=== PATIENT | female | born 1980 | race Two or more races ===

== ENCOUNTER 2024-07-03 08:29 | Emergency (ER) | payer BC ==
[2024-07-03 09:12] LABS: BASOPHILS ABSOLUTE AUTO 0.09 K/uL (0.00-0.20); BASOPHILS PERCENT AUTO 0.7 % (0.0-1.0); EOSINOPHILS ABSOLUTE AUTO 0.64 K/uL (0.00-0.45); HEMATOCRIT 39.5 % (37.0-47.0); HEMOGLOBIN 13.4 g/dL (12.0-16.0); IMMATURE GRAN ABSOLUTE AUTO 0.04 K/uL (0.00-0.05); IMMATURE GRAN PERCENT AUTO 0.3 % (0.0-0.4); LYMPHOCYTES ABSOLUTE AUTO 2.11 K/uL (1.00-4.80); LYMPHOCYTES PERCENT AUTO 16.3 % (24.0-44.0); MEAN CORPUSCULAR HEMOGLOBIN 30.9 pg (28.0-32.0); MEAN CORPUSCULAR HGB CONC 33.9 g/dL (32.0-36.0); MEAN CORPUSCULAR VOLUME 91.2 fL (83.0-99.0); MEAN PLATELET VOLUME 8.7 fL (9.4-12.3); MONOCYTES ABSOLUTE AUTO 1.29 K/uL (0.00-0.80); NEUTROPHILS ABSOLUTE AUTO 8.75 K/uL (1.80-7.70); NEUTROPHILS PERCENT AUTO 67.7 % (41.0-71.0); PLATELET COUNT,PLT 451 K/uL (150-400); RED BLOOD CELL COUNT 4.33 M/uL (4.10-5.30); WHITE BLOOD CELL COUNT,WBC 12.92 K/uL (3.9-11.3)
[2024-07-03 09:26] LABS: APPEARANCE,URINE CLEAR; BILIRUBIN,URINE NEGATIVE (NEGATIVE); COLOR,URINE YELLOW; GLUCOSE,URINE NEGATIVE (NEGATIVE); KETONES,URINE NEGATIVE (NEGATIVE); LEUKOCYTE ESTERASE,URINE NEGATIVE (NEGATIVE); NITRITE,URINE NEGATIVE (NEGATIVE); OCCULT BLOOD,URINE NEGATIVE (NEGATIVE); PROTEIN,URINE NEGATIVE (NEGATIVE); UROBILINOGEN,URINE 0.2 EU/dL (<2.0)
[2024-07-03 09:35] LABS: A/G RATIO 1.1 (0.9-1.6); ALBUMIN 3.8 g/dL (3.4-5.0); BILIRUBIN TOTAL 0.5 mg/dL (0.2-1.0); CALCIUM 9.1 mg/dL (8.5-10.1); CARBON DIOXIDE,CO2 25.4 mmol/L (21.0-32.0); CREATININE 0.6 mg/dL (0.6-1.0); EST CRCL DRUG DOSING (CG) 84.15 mL/min; POTASSIUM,K 4.3 mmol/L (3.5-5.1); PROTEIN TOTAL,TP 7.3 g/dL (6.4-8.2)
[2024-07-03] MEDS: Lidocaine 2% Viscous Solution 15 ML UD PO PRN (10:20)
== END 2024-07-03 10:23 | disposition home or self-care (01) ==
LOC: MW.ED 08:29
DX: K62.5 Hemorrhage of anus and rectum (principal); Z90.710 Acquired absence of both cervix and uterus; Z75.8 Other problems related to medical facilities and other health care
CPT/HCPCS: 36415; 80053; 81003; 81025; 83690; 85025; 99284; A9270

== ENCOUNTER 2024-07-04 14:08 | Day surgery (SDC) | payer BC ==
[2024-07-04] MEDS: Lidocaine 2% Viscous Solution 15 ML UD PO ONE (15:31)
[2024-07-04] MEDS: Lidocaine 1% 10 ML MDV INJECT ONE (16:38)
[2024-07-04] MEDS: Acetaminophen/HYDROcodone 325-5 MG Tab PO ONE (17:30)
[2024-07-04] MEDS: Hydrocortisone 2.5% Crm 30 GM Tube TOP ONE (18:12)
[2024-07-04] MEDS: Iopamidol 755 MG/ML 500 ML Multipack Bottle IVPUSH STA (18:17)
[2024-07-04] MEDS ORDERED: Sodium Chloride 0.9% 10 ML Syringe FLUSH PRN (18:51)
[2024-07-04] MEDS: HYDROmorphone 0.5 MG/0.5 ML Syringe IVPUSH ONE (19:11)
[2024-07-04] MEDS: Piperacillin/Tazobactam 4.5 GM in Sodium Chloride 0.9% 100 ML IV ONE (19:15)
[2024-07-04] MEDS: Sodium Chloride 0.9% 1,000 ML IV SCH (19:15)
[2024-07-04 19:22] LABS: BASOPHILS ABSOLUTE AUTO 0.08 K/uL (0.00-0.20); BASOPHILS PERCENT AUTO 0.5 % (0.0-1.0); EOSINOPHILS ABSOLUTE AUTO 0.64 K/uL (0.00-0.45); EOSINOPHILS PERCENT AUTO 3.9 % (0.0-6.0); HEMATOCRIT 38.9 % (37.0-47.0); IMMATURE GRAN ABSOLUTE AUTO 0.06 K/uL (0.00-0.05); IMMATURE GRAN PERCENT AUTO 0.4 % (0.0-0.4); LYMPHOCYTES ABSOLUTE AUTO 2.16 K/uL (1.00-4.80); LYMPHOCYTES PERCENT AUTO 13.2 % (24.0-44.0); MEAN CORPUSCULAR HEMOGLOBIN 30.7 pg (28.0-32.0); MEAN CORPUSCULAR HGB CONC 33.4 g/dL (32.0-36.0); MEAN PLATELET VOLUME 8.7 fL (9.4-12.3); MONOCYTES ABSOLUTE AUTO 1.16 K/uL (0.00-0.80); MONOCYTES PERCENT AUTO 7.1 % (0.0-8.0); NEUTROPHILS ABSOLUTE AUTO 12.21 K/uL (1.80-7.70); NEUTROPHILS PERCENT AUTO 74.9 % (41.0-71.0); PLATELET COUNT,PLT 454 K/uL (150-400); RED BLOOD CELL COUNT 4.23 M/uL (4.10-5.30); WHITE BLOOD CELL COUNT,WBC 16.31 K/uL (3.9-11.3)
[2024-07-04 19:37] LABS: A/G RATIO 0.9 (0.9-1.6); ALBUMIN 3.5 g/dL (3.4-5.0); BILIRUBIN TOTAL 0.4 mg/dL (0.2-1.0); C-REACTIVE PROTEIN 6.33 mg/dL (<0.3); CALCIUM 8.7 mg/dL (8.5-10.1); CARBON DIOXIDE,CO2 25.4 mmol/L (21.0-32.0); CREATININE 0.7 mg/dL (0.6-1.0); EST CRCL DRUG DOSING (CG) 72.13 mL/min; POTASSIUM,K 4.5 mmol/L (3.5-5.1); PROTEIN TOTAL,TP 7.2 g/dL (6.4-8.2)
[2024-07-04] MEDS ORDERED: Rocuronium Bromide 50 MG/5 ML Syringe ONE (20:35)
[2024-07-04] MEDS ORDERED: dexmedeTOMIDine HCl 200 MCG/2 ML SDV ONE (20:35)
[2024-07-04] MEDS ORDERED: fentaNYL 250 MCG/5 ML SDV ONE (20:35)
[2024-07-04] MEDS ORDERED: Water For Injection, Sterile 20 ML ONE (20:35)
[2024-07-04] MEDS ORDERED: Propofol 200 MG/20 ML SDV ONE (20:35)
[2024-07-04] MEDS ORDERED: Bupivacaine 0.5% 30 ML SDV ONE (21:04)
[2024-07-04] MEDS ORDERED: Dexamethasone 4 MG/ML 5 ML MDV ONE (21:41)
[2024-07-04] MEDS ORDERED: Ondansetron 4 MG/2 ML SDV ONE (21:41)
[2024-07-04] MEDS ORDERED: Ketorolac 30 MG/ML SDV ONE (21:58)
[2024-07-04] MEDS ORDERED: Sugammadex Sodium 200 MG/2 ML VIAL IV ONE (21:58)
[2024-07-04] MEDS ORDERED: Albuterol 8 GM Inhaler ONE (22:29)
== END 2024-07-05 01:25 | disposition home or self-care (01) ==
LOC: MW.ED 14:08 → MW.SDS 19:05 → MW.MS 20:23 → MW.SDS 07-05 01:25
PROVIDERS: ATTEND Surgery
DX: K61.0 Anal abscess (principal); K64.9 Unspecified hemorrhoids; J45.909 Unspecified asthma, uncomplicated; Z79.899 Other long term (current) drug therapy
CPT/HCPCS: 36415; 46050; 74177; 80053; 85025; 85652; 86140; 87070; 87075; 87205; A9270; J0665; J1100; J1171; J1885; J2405; J2543; J2704; J3010; J3490; J7030; Q9967; 87077; 87186